=== PATIENT | female | born 1990 | race Caucasian/White ===

== ENCOUNTER 2017-05-30 07:41 | Emergency (ER) | payer BC ==
[2017-05-30 07:53] VITALS: BP 111/64
--- NOTE | 2017-05-30 08:13 | UC ---
UC General HPI - HPI Summary HPI Summary: patient has had a few days of vaginal itching and 2 days of white creamy discharge. no abdominal pain, patient is monogomous relationship, had a baby a few months ago, denies chance of STD's. - History of Current Complaint Chief Complaint: UCGU Stated Complaint: YEAST INFECTION Time Seen by Provider: 05/30/17 08:04 Hx Obtained From: Patient Hx Last Menstrual Period: 05/14/17 Onset/Duration: Sudden Onset, Lasting Days Timing: Constant Onset Severity: Mild Current Severity: Mild - Allergy/Home Medications Allergies/Adverse Reactions: Allergies Allergy/AdvReac Type Severity Reaction Status Date / Time Penicillins Allergy Severe Hives Verified 07/08/12 16:49 Amoxicillin Allergy Hives Verified 05/30/17 07:53 PMH/Surg Hx/FS Hx/Imm Hx Previously Healthy: Yes - Surgical History Surgical History: Yes Surgery Procedure, Year, and Place: tonsilectomy - Family History Known Family History: Negative: Cardiac Disease, Hypertension - Social History Alcohol Use: None Substance Use Type: None Smoking Status (MU): Never Smoked Tobacco Review of Systems Constitutional: Negative Skin: Rash - vaginal irritation Eyes: Negative ENT: Negative Respiratory: Negative Cardiovascular: Negative Gastrointestinal: Negative Genitourinary: Negative Motor: Negative Neurovascular: Negative Musculoskeletal: Negative Neurological: Negative Psychological: Negative Is Patient Immunocompromised?: Yes All Other Systems Reviewed And Are Negative: Yes Physical Exam Triage Information Reviewed: Yes Appearance: Well-Appearing, Well-Nourished Vital Signs: Initial Vital Signs Temp 98.1 F 05/30/17 07:46 Pulse 70 05/30/17 07:46 Resp 18 05/30/17 07:46 BP 111/64 05/30/17 07:46 Vital Signs Reviewed: Yes Eye Exam: Normal ENT Exam: Normal Dental Exam: Normal Neck exam: Normal Respiratory Exam: Normal Cardiovascular Exam: Normal Abdominal Exam: Normal Abdomen Description: Positive: Nontender, No Organomegaly, Soft, CVA Tenderness (R) - neg, CVA Tenderness (L) - neg, Other: - refused pelvic Bowel Sounds: Positive: Present Musculoskeletal Exam: Normal Neurological Exam: Normal Psychological Exam: Normal Skin: Positive: rashes - red vaginal area Course/Dx - Course Course Of Treatment: hx obtained, exam performed ,meds reviewed, UA obtained and had large leuks, will treat although no complaints of dysuria, treated for vaginitis - Differential Dx - Multi-Symptom Provider Diagnoses: UTI, vaginitis Discharge - Discharge Plan Condition: Stable Disposition: HOME Patient Education Materials: Vaginitis (ED), Urinary Tract Infection in Women ( ED) Additional Instructions: 1. take the medication as prescribed. 2. Increase your fluid intake and get rest 3. Follow up with any increase or non resolving symtpoms.
== END 2017-05-30 08:29 | disposition home or self-care (01) ==
LOC: UCCORT 07:41
DX: N39.0 Urinary tract infection, site not specified (principal); B37.3 Candidiasis of vulva and vagina; Z88.0 Allergy status to penicillin
CPT/HCPCS: 81003; 87086; 87106; 99212; G0463

== ENCOUNTER 2019-03-18 17:22 | Emergency (ER) | payer BC ==
[2019-03-18 18:30] VITALS: BP 108/75
--- NOTE | 2019-03-18 18:40 | UC ---
Throat Pain/Nasal Thor HPI - HPI Summary HPI Summary: 29 yo female with one day hx of fever and sore throat no n/v no cp or sob - History of Current Complaint Chief Complaint: UCRespiratory Stated Complaint: ST Time Seen by Provider: 03/18/19 18:29 Hx Obtained From: Patient Hx Last Menstrual Period: DOES NOT HAVE REG PERIODS , HAS MIRENA IUD Onset/Duration: Gradual Onset, Lasting Days Severity: Moderate Pain Intensity: 6 Pain Scale Used: 0-10 Numeric Cough: None Associated Signs & Symptoms: Positive: Fever Related History: Prior ENT Surgery, T & A - Epiglottits Risk Factors Epiglottis Risk Factors: Negative - Allergies/Home Medications Allergies/Adverse Reactions: Allergies Allergy/AdvReac Type Severity Reaction Status Date / Time amoxicillin Allergy Unknown Hives Verified 03/18/19 18:19 Penicillins Allergy Unknown Hives Verified 03/18/19 18:19 Home Medications: Home Medications Levonorgestrel (Iud) [Mirena IUD] 20 mcg IU 03/18/19 [History] Loratadine [Claritin 10 MG CAP] 10 mg PO DAILY PRN 03/18/19 [History Confirmed 03/18/19] PMH/Surg Hx/FS Hx/Imm Hx Previously Healthy: Yes - Surgical History Surgical History: Yes Surgery Procedure, Year, and Place: tonsilectomy - Family History Known Family History: Negative: Cardiac Disease, Hypertension, Diabetes - Social History Alcohol Use: Occasionally Substance Use Type: None Smoking Status (MU): Never Smoked Tobacco Review of Systems All Other Systems Reviewed And Are Negative: Yes Constitutional: Positive: Fever, Chills Skin: Positive: Negative Eyes: Positive: Negative ENT: Positive: Sore Throat Respiratory: Positive: Negative Cardiovascular: Positive: Negative Gastrointestinal: Positive: Negative Genitourinary: Positive: Negative Motor: Positive: Negative Neurovascular: Positive: Negative Musculoskeletal: Positive: Negative Neurological: Positive: Negative Psychological: Positive: Negative Physical Exam Triage Information Reviewed: Yes Appearance: Well-Appearing, No Pain Distress, Well-Nourished Vital Signs: Initial Vital Signs Temp 98.7 F 03/18/19 18:21 Pulse 61 03/18/19 18:21 Resp 15 03/18/19 18:21 BP 108/75 03/18/19 18:21 Pulse Ox 100 03/18/19 18:21 Vital Signs Reviewed: Yes Eyes: Positive: Conjunctiva Clear ENT: Positive: Hearing grossly normal, Pharyngeal erythema, TMs normal, Uvula midline. Negative: Nasal congestion, Nasal drainage, TM bulging, Tonsillar swelling, Tonsillar exudate, Trismus, Muffled voice, Hoarse voice, Sinus tenderness Dental Exam: Normal Neck: Positive: Supple, Enlarged Nodes @ - ant cerv Respiratory: Positive: Lungs clear, Normal breath sounds, No respiratory distress, No accessory muscle use Cardiovascular: Positive: RRR, No Murmur, Pulses Normal Musculoskeletal: Positive: ROM Intact, No Edema Psychological Exam: Normal Skin Exam: Normal Diagnostics - Laboratory Lab Results: strep (+) Throat Pain/Nasal Course/Dx - Differential Dx/Diagnosis Provider Diagnosis: Strep sore throat Discharge - Sign-Out/Discharge Documenting (check all that apply): Patient Departure All imaging exams completed and their final reports reviewed: No Studies - Discharge Plan Condition: Stable Disposition: HOME Prescriptions: Azithromycin 500 mg PO DAILY #4 tablet Patient Education Materials: Strep Throat (ED) Referrals: Jessi Love MD [Primary Care Provider] - 3 Days (if not better) - Billing Disposition and Condition Condition: STABLE Disposition: Home
[2019-03-18] MEDS ORDERED: Azithromycin TAB* 250 MG PO ONE (18:43)
== END 2019-03-18 18:53 | disposition home or self-care (01) ==
LOC: UCCORT 17:22
DX: J02.0 Streptococcal pharyngitis (principal); B95.0 Streptococcus, group A, as the cause of diseases classified elsewhere; Z88.0 Allergy status to penicillin
CPT/HCPCS: 87651; 99212; A9270-GY; G0463

== ENCOUNTER 2019-12-10 16:29 | Emergency (ER) | payer BC ==
[2019-12-10 17:01] VITALS: BP 122/74
--- OUTSIDE RECORDS SUMMARY | 2019-12-10 17:03 | XMS REPORT | Continuity of Care Document ---
:1990 External Reference #:[id number] Author Name Jessi Love MD Address [address] [place] [id number] Care Team Providers Name Role Phone Stefany Orta MD - Obstetrics & Care Team Information Engine [employer]er [phone] Gynecology eloy lima, garcía Care Team Information Engine [employer] [phone] Problems Active Problems Provider Date Hypothyroidism Jessi Love MD Onset: 03/25/2017 Anxiety state Jessi Love MD Onset: 11/01/2018 Social History Type Date Description Comments Sex Unknown Tobacco Use Start: Unknown Never Smoked Cigarettes ETOH Use Denies alcohol use Tobacco Use Start: Unknown Patient has never smoked Smoking Status Reviewed: 11/01/18 Patient has never smoked Allergies, Adverse Reactions, Alerts Active Allergies Reaction Severity Comments Date Amoxicillin 12/06/2014 Penicillins 12/07/2015 Medications Active Medications SIG Qnty Indications Ordering Date Provider Levothyroxine Sodium 1 by mouth every 30tabs E03.9 Jessi Love, 2019 day 88mcg Tablets Buspirone HCL 1 by mouth three 90tabs F41.9 Jessi Love, 11/01/2018 5mg Tablets times a day for MD maradiaga Mirena (52 MG) Inserted 07/2016 Jessi Love, 11/11/2016 20mcg/24HR IUD Probiotic 1 by mouth every Unknown Capsules day Tretinoin Apply A Pea Sized Unknown 0.025% Cream Amount AT Bedtime Every Other Night Medications Administered in Office Medication SIG Qnty Indications Ordering Provider Date PPD Injection Schedule, Nurses 04/12/2019 PPD Injection Schedule, Nurses 03/15/2018 PPD Injection Schedule, Nurses 03/01/2018 Immunizations CPT Code Status Date Vaccine Lot # [id number] Given 06/23/2019 Influenza Virus Vaccine,Quadrivalent,Split,Preserv Free, 0.5mL,Im [id number] Given 07/02/2018 Flu Vaccine NOS [id number] Given 09/19/2016 Tdap (Adacel) Ages 7 And Above Only [id number] Refused 04/25/2018 Flu Vaccine NOS Vital Signs Date Vital Result Comment 11/03/2019 10:03am Weight 161.00 lb Heart Rate 60 /min BP Systolic 116 mmHg BP Diastolic 68 mmHg Respiratory Rate 16 /min Height 64 inches 5'4" O2 % BldC Oximetry 98 % Ra BMI (Body Mass Index) 27.6 kg/m2 05/02/2019 11:40am Weight 157.00 lb Heart Rate 55 /min BP Systolic 110 mmHg BP Diastolic 68 mmHg Respiratory Rate 16 /min Height 64 inches 5'4" O2 % BldC Oximetry 98 % Ra BMI (Body Mass Index) 26.9 kg/m2 Results Test Acquired Date Facility Test Result H/L Range Note Laboratory test finding 10/31/2019 [facility] 2.53 uIU/mL 0.35-4.94 1 1 6 mos Procedures Description No Information Available Medical Devices Description No Information Available Encounters Description No Information Available Assessments Date Code Description Provider 11/03/2019 R53.83 Other fatigue Jessi Love MD 11/03/2019 E03.9 Hypothyroidism, unspecified Jessi Love MD 11/03/2019 F41.9 Anxiety disorder, unspecified Jessi Love MD 11/03/2019 Z68.27 Body mass index (BMI) 27.0-27.9, adult Jessi Love MD 10/31/2019 E03.9 Hypothyroidism, unspecified Jessi Love MD 10/31/2019 E03.9 Hypothyroidism, unspecified Schedule, Laboratory 10/31/2019 E03.9 Hypothyroidism, unspecified [facility] Plan of Treatment Future Appointment(s):04/26/2020 8:10 am - Schedule, Laboratory at [facility]2019 10:00 am - Jessi Love MD at [facility]12/15/2019 9:25 am - Schedule, Laboratory at [facility]11/03/2019 - Jessi Love MDR53.83 Other fatigueComments: Fatigue - cause unclear - will check labs soon. Patient to call if symptoms persist, worsen or change.Follow up:TSH is normal in 6 weeks. 6-months follow up with non-fasting labs prior.E03.9 Hypothyroidism, unspecifiedNew Medication: Levothyroxine Sodium 88 mcg - 1 by mouth every dayNew Labs:TSH, Scheduled: 12/14TSH, Scheduled: 04/26/20Comments:TSH is 2.53, unchanged. TSH is in the therapeutic range. However she feels undertreated, so will increase the dose of levothyroxine to 88 mcg 1 by mouth every day.F41.9 Anxiety disorder, unspecifiedNew Labs:CBC with Auto Diff-[facility], Scheduled: 04/26/20Comprehensive Met Panel-[facility], Scheduled: 04/26/20Comments:She is taking her buspirone on an as needed basis. Continue with this.Z68.27 Body mass index (BMI) 27.0-27.9, adultComments:Goal bmi is less than 25 - this is the ratio of height to weight. Weight loss is desirable - work on healthy lifestyle with regular exercise and healthy diet. Functional Status Description No Information Available Mental Status Description No Information Available Referrals Description No Information Available
--- NOTE | 2019-12-10 17:04 | UC ---
Throat Pain/Nasal Thor HPI - HPI Summary HPI Summary: Pt presets with c/o sudden onset of ST X 1 day. - History of Current Complaint Chief Complaint: UCGeneralIllness Stated Complaint: SORE THROAT Time Seen by Provider: 12/10/19 16:42 Hx Obtained From: Patient Hx Last Menstrual Period: has IUD ?: No Onset/Duration: Sudden Onset, Still Present Severity: Mild Pain Intensity: 3 Cough: None Associated Signs & Symptoms: Positive: Dysphagia - Epiglottits Risk Factors Epiglottis Risk Factors: Sudden Onset - Allergies/Home Medications Allergies/Adverse Reactions: Allergies Allergy/AdvReac Type Severity Reaction Status Date / Time amoxicillin Allergy Unknown Hives Verified 12/10/19 16:49 Penicillins Allergy Unknown Hives Verified 12/10/19 16:49 Home Medications: Home Medications Levonorgestrel (Iud) [Mirena IUD] 20 mcg IU ONCE 03/18/19 [History Confirmed ] Azithromycin TAB* [Zithromax TAB (Z-GREG) 250 mg #6 tabs] 2 tab PO .TODAY, THEN 1 DAILY #1 greg 12/10/19 [Rx] L.acidoph,Paracasei, B.lactis [Probiotic] 1 each PO DAILY 12/10/19 [History Confirmed 12/10/19] Levothyroxine TAB* [Synthroid 88 MCG TAB*] 88 mcg PO DAILY 12/10/19 [History Confirmed 12/10/19] PMH/Surg Hx/FS Hx/Imm Hx Previously Healthy: Yes - Surgical History Surgical History: Yes Surgery Procedure, Year, and Place: tonsilectomy - Family History Known Family History: Negative: Cardiac Disease, Hypertension, Diabetes - Social History Occupation: Student Lives: With Family Alcohol Use: Occasionally Substance Use Type: None Smoking Status (MU): Never Smoked Tobacco Have You Smoked in the Last Year: No - Immunization History Vaccination Up to Date: Yes Review of Systems All Other Systems Reviewed And Are Negative: Yes Constitutional: Positive: Fatigue Skin: Positive: Negative Eyes: Positive: Negative ENT: Positive: Sore Throat Respiratory: Positive: Negative Cardiovascular: Positive: Negative Gastrointestinal: Positive: Negative Genitourinary: Positive: Negative Motor: Positive: Negative Neurovascular: Positive: Negative Musculoskeletal: Positive: Negative Neurological/Mental Status: Positive: Negative Psychological: Positive: Negative Is Patient Immunocompromised?: No Physical Exam Triage Information Reviewed: Yes Appearance: Well-Appearing Vital Signs: Initial Vital Signs Temp 98.4 F 12/10/19 16:42 Pulse 76 12/10/19 16:42 Resp 16 12/10/19 16:42 BP 122/74 12/10/19 16:42 Pulse Ox 100 12/10/19 16:42 Vital Signs Reviewed: Yes Eye Exam: Normal ENT: Positive: Pharyngeal erythema Dental Exam: Normal Neck exam: Normal Respiratory Exam: Normal Respiratory: Positive: Normal breath sounds, No respiratory distress Cardiovascular Exam: Normal Musculoskeletal Exam: Normal Neurological Exam: Normal Psychological Exam: Normal Skin Exam: Normal Throat Pain/Nasal Course/Dx - Differential Dx/Diagnosis Differential Diagnosis/HQI/PQRI: Pharyngitis, Tonsillitis Provider Diagnosis: Strep throat Discharge ED - Sign-Out/Discharge Documenting (check all that apply): Patient Departure All imaging exams completed and their final reports reviewed: No Studies - Discharge Plan Condition: Stable Disposition: HOME Prescriptions: Azithromycin TAB* [Zithromax TAB (Z-GREG) 250 mg #6 tabs] 2 tab PO .TODAY, THEN 1 DAILY #1 greg Patient Education Materials: Strep Throat (ED) Forms: *School Release Referrals: Jessi Love MD [Primary Care Provider] - - Billing Disposition and Condition Condition: STABLE Disposition: Home - Attestation Statements Provider Attestation: This patient was not seen by me. I was available for consult. Chart reviewed. STAN
== END 2019-12-10 17:22 | disposition home or self-care (01) ==
LOC: UCCORT 16:29
DX: J02.0 Streptococcal pharyngitis (principal); Z88.0 Allergy status to penicillin
CPT/HCPCS: 87651; 99212; G0463